=== PATIENT | male | born 1995 | race Caucasian/White ===

== ENCOUNTER 2019-01-16 16:13 | Emergency (ER) | payer OTHER, SELFPAY ==
[2019-01-16 16:32] VITALS: BP 116/67; PULSE 69; RESP 16; TEMP 36.9; O2SAT 98
--- NOTE | 2019-01-16 16:54 | PC.NURSE ---
Patient reports a sore throat, swollen lymph nodes, pain with swallowing, and sensation fo constantly needing to clear his throat for the last week. Tonsils do not appear swollen or reddened, no white patches noted. No fevers. Has history of strep and states he just wanted to make sure he doesn't have it.
[2019-01-16 17:49] LABS: Influenza A - CEPHEID Flu A NEGATIVE (NEGATIVE); Influenza B - CEPHEID Flu B NEGATIVE (NEGATIVE)
[2019-01-16 18:12] VITALS: BP 110/75; PULSE 70; RESP 16; O2SAT 97
--- NOTE | 2019-01-16 18:14 | ED_ITS ---
HPI - URI/Sore Throat <ESPERANZA Wylie - Last Filed: 01/16/19 18:16> General Chief Complaint: Upper Respiratory Symptoms Stated Complaint: Throat Issues For Past Week Time Seen by Provider: 01/16/19 16:44 Source: patient Mode of arrival: Ambulatory Limitations: no limitations History of Present Illness HPI Narrative: The patient is a 23-year-old male current smoker who presents with a friend for chief complaint of sore throat for past week. He states it feels similar to previous episodes of strep throat, he wants to make sure he does not have strep throat. He does not take anything to feel better. Denies any fevers nausea vomiting or diarrhea. Does complain of some muscle aches and chills. States he has inflamed lymph nodes. Denies any ear pain. Has occasional cough. Related Data Home Medications Medication Instructions Recorded Confirmed No Known Home Medications 01/16/19 01/16/19 Allergies Allergy/AdvReac Type Severity Reaction Status Date / Time No Known Drug Allergies Allergy Verified 01/16/19 16:37 Review of Systems <ESPERANZA Wylie - Last Filed: 01/16/19 18:16> Review of Systems Narrative: GENERAL: Denies chills, fatigue, malaise, fever, sweats. HEENT: See HPI RESPIRATORY: Denies dyspnea, cough, wheezing, hemoptysis, sputum. CARDIOVASCULAR: Denies chest pain, palpitations, orthopnea, edema, GASTROINTESTINAL: Denies nausea, vomiting, abdominal pain, diarrhea, constipation, melena. : Denies dysuria, frequency, incontinence, hematuria, urinary retention. MUSCULOSKELETAL: denies weakness, joint pain, or bony pain SKIN: Denies rash, skin lesions, or other NEUROLOGIC: Denies weakness, headache, numbness, change in speech, confusion, seizures, incoordination. PSYCHIATRIC: No concerning psychosocial issues. 12 point review of systems is negative except for those stated above Patient History <ESPERANZA Wylie - Last Filed: 01/16/19 18:16> tobacco type: e-cigarettes and vaping alcohol intake frequency: 0-2 drinks per day Substance Use Type: does not use Exam <ESPERANZA Wylie - Last Filed: 01/16/19 18:16> Narrative Exam Narrative: GENERAL: This is a well-nourished, well-developed patient, in no acute distress HEAD: Atraumatic. Normocephalic. No temporal or scalp tenderness. EYES: Pupils equal round and reactive. Extraocular motions intact. No scleral icterus. No injection or drainage. ENT: Nose without bleeding, purulent drainage or septal hematoma. Throat without erythema, tonsillar hypertrophy or exudate. Uvula midline. Airway patent. Bilat eral TMs pearly ca. NECK: Trachea midline. No JVD or lymphadenopathy. Supple, nontender, no meningeal signs. CARDIOVASCULAR: Regular rate and rhythm without murmurs, gallops, or rubs. RESPIRATORY: Clear to auscultation. Breath sounds equal bilaterally. No wheezes, rales, or rhonchi. No cough. No increased respiratory effort. No accessory muscle use. GASTROINTESTINAL: Abdomen soft, non-tender, nondistended. No hepato- splenomegaly, or palpable masses. No guarding. Active bowel sounds all 4 quadrants. EXTREMITIES: No clubbing, cyanosis, or edema. No joint tenderness, effusion, or edema noted. BACK: Nontender without deformity or crepitance. No flank tenderness. NEURO: AOx3. SKIN: No rash or erythema. Initial Vital Signs Initial Vital Signs: Vital Signs Temperature 98.4 F 01/16/19 16:32 Pulse Rate 69 01/16/19 16:32 Respiratory Rate 16 01/16/19 16:32 Blood Pressure 116/67 01/16/19 16:32 Pulse Oximetry 98 01/16/19 16:32 <Andrew Ivan MD - Last Filed: 01/16/19 21:51> Initial Vital Signs Initial Vital Signs: Vital Signs Temperature 98.4 F 01/16/19 16:32 Pulse Rate 69 01/16/19 16:32 Respiratory Rate 16 01/16/19 16:32 Blood Pressure 116/67 01/16/19 16:32 Pulse Oximetry 98 01/16/19 16:32 Course <ESPERANZA Wylie - Last Filed: 01/16/19 18:16> Orders Ordered: ED Orders 01/16/19 17:12 Influenza A & B (PCR) Stat Vital Signs Vital signs: Vital Signs - 8 hr 01/16/19 16:32 01/16/19 18:12 Temperature 98.4 F Pulse Rate 69 70 Respiratory Rate 16 16 Blood Pressure 116/67 110/75 Pulse Oximetry 98 97 <Andrew Ivan MD - Last Filed: 01/16/19 21:51> Orders Ordered: ED Orders 01/16/19 17:12 Influenza A & B (PCR) Stat Vital Signs Vital signs: Vital Signs - 8 hr 01/16/19 16:32 01/16/19 18:12 Temperature 98.4 F Pulse Rate 69 70 Respiratory Rate 16 16 Blood Pressure 116/67 110/75 Pulse Oximetry 98 97 MDM - URI/Sore Throat <RICCARDO Wylie- - Last Filed: 01/16/19 18:16> Lab Data Labs: Lab Results 01/16/19 Range/Units 17:12 Influenza A (RT-PCR) Flu a negative (NEGATIVE) Influenza B (RT-PCR) Flu b negative (NEGATIVE) Point of Care Testing Rapid Strep A Negative MDM Narrative Medical decision making narrative: The patient is a 23-year-old male who presents with a chief complaint of a sore throat. Flu and rapid strep are negative. He has no signs of systemic illness, is tolerating p.o. is very well in the emergency department. Discussed at length the importance of following up with primary care provider, the possibility of mononucleosis if not improving. Patient states understanding, states he was just here to make sure he does not have strep throat given his history and work. Discussed at length follow up with primary care provider, [id number] medications as needed and able. Patient has no questions or concerns upon discharge and states understanding of return precautions as well as follow-up care. <Andrew Ivan MD - Last Filed: 01/16/19 21:51> Lab Data Labs: Lab Results 01/16/19 Range/Units 17:12 Influenza A (RT-PCR) Flu a negative (NEGATIVE) Influenza B (RT-PCR) Flu b negative (NEGATIVE) Point of Care Testing Rapid Strep A Negative Discharge Plan Departure Patient Disposition: Home Clinical Impression: Pharyngitis Qualifiers: Pharyngitis/tonsillitis etiology: unspecified etiology Qualified Code(s): J02.9 - Acute pharyngitis, unspecified Discharge Date/Time: 01/16/19 18:13 Instructions: DI for Viral Pharyngitis Activity Restrictions/Additional Instructions: Your flu and strep test came back negative Please follow-up with primary care provider. I suggest [id number] remedies such as Tylenol, Motrin, throat lozenges Please come back to the emergency department for any acute concerns such as inability keep down fluids Prescriptions: No Action No Known Home Medications RF: 0 Referrals: Papito Agarwal [Primary Care Provider] - Stand Alone Forms: Work Release Note
== END 2019-01-16 18:13 | disposition home or self-care (01) ==
PROVIDERS: Emergency Provider Nurse Practitioner Family
DX: J02.9 Acute pharyngitis, unspecified (principal)
CPT/HCPCS: 87502; 87880; 99282